=== PATIENT | female | born 1970 | race Caucasian/White ===

== ENCOUNTER 2019-02-11 12:44 | Outpatient (CLI) | payer OTHER | END 2019-02-11 12:45 | disposition critical access hospital (66) | LOC: EMS 12:44 | PROVIDERS: ATTEND Surgery | DX: M25.571 Pain in right ankle and joints of right foot (principal); W18.49XA Other slipping, tripping and stumbling without falling, initial encounter; Y93.01 Activity, walking, marching and hiking; Y92.89 Other specified places as the place of occurrence of the external cause | CPT/HCPCS: A0425; A0427 ==

== ENCOUNTER 2019-02-11 12:50 | Emergency (ER) | payer BC, OTHER ==
--- NOTE | 2019-02-11 13:00 | ED Physician Documentation ---
PD HPI LOWER EXT INJURY - Stated complaint Stated Complaint: R ANKLE PAIN - Chief complaint Chief Complaint: Ext Problem - History obtained from History obtained from: Patient, EMS - History of Present Illness PD HPI LOW EXT INJURY LOCATION: Right (She was out to get lunch and she tripped and fell inverting her right ankle and has severe pain there. She received 100 mcg of fentanyl in route. She declines pain medication on initial evaluation. No other injuries. She does have a history of malignant brain tumor, it has recurred, she is not getting therapy for this yet but will be soon.) Review of Systems Ten Systems: 10 systems reviewed and negative Constitutional: reports: Reviewed and negative Nose: reports: Reviewed and negative Throat: reports: Reviewed and negative PD PAST MEDICAL HISTORY - Past Medical History Past Medical History: Yes Other Past Medical History: Brain CA - Present Medications Home Medications: Ambulatory Orders Medication Instructions Recorded Confirmed Atenolol 100 mg PO 02/11/19 Knee Scooter 1 unit TD ONCE #1 02/11/19 Lisinopril [Prinivil] 10 mg PO 02/11/19 Oxycodone HCl/Acetaminophen 1 - 2 each PO Q6H PRN #30 tablet 02/11/19 [Percocet 5-325 mg Tablet] - Allergies Allergies/Adverse Reactions: Allergies Allergy/AdvReac Type Severity Reaction Status Date / Time No Known Drug Allergies Allergy Verified 02/11/19 12:58 - Living Situation Living Situation: reports: With family - Social History Does the pt have substance abuse?: No - Family History Family history: reports: Non contributory PD ED PE NORMAL - Vitals Vital signs reviewed: Yes - General General: Alert and oriented X 3, No acute distress - HEENT HEENT: PERRL, EOMI - Neck Neck: Supple, no meningeal sign, No bony TTP - Cardiac Cardiac: RRR, No murmur - Respiratory Respiratory: No respiratory distress, Clear bilaterally - Abdomen Abdomen: Normal bowel sounds, Soft, Non tender - Back Back: No CVA TTP, No spinal TTP - Derm Derm: Normal color, Warm and dry - Extremities Extremities: Other (There is a little abrasion over the medial malleolus, it is too shallow to represent an open fracture. She has severe tenderness about the ankle with normal neurovascular status in the foot. There is no proximal fibular tenderness.) - Neuro Neuro: Alert and oriented X 3, Normal speech - Psych Psych: Normal mood, Normal affect Results - Vitals Vitals: Vital Signs - 24 hr 02/11/19 02/11/19 02/11/19 12:55 15:00 15:33 Temperature 36.8 C Heart Rate 76 67 68 Respiratory 16 16 17 Rate Blood Pressure 145/96 H 184/94 H 176/95 H O2 Saturation 94 97 98 02/11/19 02/11/19 15:40 15:42 Temperature Heart Rate 75 73 Respiratory 14 17 Rate Blood Pressure 175/95 H 162/87 H O2 Saturation 97 99 Oxygen O2 Source Room air - Labs Labs: Laboratory Tests 02/11/19 02/11/19 13:10 13:10 WBC 12.2 H RBC 4.91 Hgb 14.6 Hct 43.5 MCV 88.5 MCH 29.8 MCHC 33.7 RDW 13.8 Plt Count 344 MPV 7.6 L Neut # (Auto) 6.8 H Lymph # (Auto) 4.2 H [place] # (Auto) 0.8 Eos # (Auto) 0.2 Baso # (Auto) 0.2 H Absolute Nucleated RBC 0.00 Nucleated RBC % 0.0 Sodium 137 Potassium 3.8 Chloride 102 Carbon Dioxide 23 Anion Gap 12.0 BUN 16 Creatinine 0.8 Estimated GFR (MDRD) 77 L Glucose 113 H Calcium 9.4 Total Bilirubin 0.3 AST 18 ALT 16 Alkaline Phosphatase 68 Total Protein 7.8 Albumin 4.2 Globulin 3.6 Albumin/Globulin Ratio 1.2 Lipase 38 Ethyl Alcohol < 5.0 Procedures - Splint (location) rle Splint applied by: Physician, Tech Type of splint: Fiberglass, Short leg, Posterior, Stirrup Other: Patient tolerated well, No complications, Neurovascular intact, Crutches provided - Reduction Body part reduced: Right, Ankle Fracture or dislocation: Fracture dislocation Reduction aftercare: NV intact, Alignment improved - Procedural sedation Sedation prep: Informed consent, Time out completed, Last meal (1205pm), PE performed, AHA 2 - mild disease (tobacco, obesity) Sedation medications: propofol (80mg IVP x1) Patient status during sedation: Vitals remained stable, Maintained airway, Recovered uneventfully Sedation recovery: Recovered uneventfully PD MEDICAL DECISION MAKING - ED course ED course: 48-year-old woman with isolated right ankle injury, obvious fracture both clinically and on x-ray with trimalleolar fracture dislocation on x-ray. Case discussed by phone with Dr. Walker, on-call orthopedics. She is only been n.p.o. for about 2 hours and recommends closed reduction and splinting and follow-up in the office. Departure - Departure Disposition: 01 Home, Self Care Clinical Impression: Fracture dislocation of right ankle Qualifiers: Encounter type: initial encounter Fracture type: closed Qualified Code(s): S82.891A - Other fracture of right lower leg, initial encounter for closed fracture Condition: Good Record reviewed to determine appropriate education?: Yes Instructions: ED Fx Ankle Lateral Malleolus Follow-Up: Mk Walker MD [Provider Admit Priv/Credential] - Prescriptions: Knee Scooter 1 unit TD ONCE #1 Oxycodone HCl/Acetaminophen [Percocet 5-325 mg Tablet] 1 - 2 each PO Q6H PRN #30 tablet PRN Reason: pain Comments: Keep the leg elevated as much as possible. You can ice it through the splint, but do not remove the splint or get it wet. Return for new or worsening symptoms. Call Dr. Walker's office for Thursday for next available appointment. As discussed you will need a surgical procedure on this fracture to stabilize it. Forms: Activity restrictions
[2019-02-11 13:14] LABS: BASOPHILS # (AUTO) 0.2 10^3/uL (0.0-0.1); BASOPHILS % (AUTO) 1.4 %; EOSINOPHILS # (AUTO) 0.2 10^3/uL (0.0-0.7); EOSINOPHILS % (AUTO) 1.8 %; HGB - HEMOGLOBIN 14.6 g/dL (12.0-16.0); LYMPHOCYTES # (AUTO) 4.2 10^3/uL (1.5-3.5); LYMPHOCYTES % (AUTO) 34.3 %; MEAN CORPUSCULAR HEMOGLOBIN 29.8 pg (27.0-31.0); MEAN CORPUSCULAR HGB CONC 33.7 g/dL (32.0-36.0); MEAN CORPUSCULAR VOLUME 88.5 fL (81.0-99.0); MEAN PLATELET VOLUME 7.6 fL (7.9-10.8); MONOCYTES # (AUTO) 0.8 10^3/uL (0.0-1.0); MONOCYTES % (AUTO) 6.6 %; NEUTROPHILS # (AUTO) 6.8 10^3/uL (1.5-6.6); NEUTROPHILS % (AUTO) 55.9 %; PLT - PLATELET COUNT 344 10^3/uL (130-450); RED BLOOD COUNT 4.91 10^6/uL (4.20-5.40); RED CELL DISTRIBUTION WIDTH 13.8 % (12.0-15.0); WHITE BLOOD COUNT 12.2 x10^3/uL (4.8-10.8)
[2019-02-11 13:30] LABS: ALBUMIN 4.2 g/dL (3.2-5.5); ALBUMIN/GLOBULIN RATIO 1.2 (1.0-2.2); ALKALINE PHOSPHATASE 68 IU/L (42-121); ALT ALANINE AMINOTRANSFERASE 16 IU/L (10-60); AST ASPARTATE AMINOTRANSFERASE 18 IU/L (10-42); BILIRUBIN,TOTAL 0.3 mg/dL (0.2-1.0); BUN - BLOOD UREA NITROGEN 16 mg/dL (6-20); CALCIUM 9.4 mg/dL (8.5-10.3); CARBON DIOXIDE - CO2 23 mmol/L (21-32); CHLORIDE 102 mmol/L (101-111); CREATININE 0.8 mg/dL (0.4-1.0); GFR - MDRD 77 (>89); GLUCOSE 113 mg/dL (70-100); LIPASE 38 U/L (22-51); SODIUM 137 mmol/L (135-145); TOTAL PROTEIN 7.8 g/dL (6.7-8.2)
[2019-02-11] MEDS ORDERED: HYDROmorphone 1 MG/ML CARPUJECT IVP STA ×2 (13:34→15:44)
[2019-02-11] MEDS ORDERED: NICOTINE 14 MG PATCH TOP STA (14:09)
[2019-02-11] MEDS ORDERED: PROPOFOL 200 MG/20 ML VIAL IVP STA (14:54)
--- NOTE | 2019-02-11 15:04 | XRAY Report ---
Reason: ankle inj Procedure Date: 02/11/2019 Accession Number: [id number] / [id number] Procedure: XR - Ankle 3 View RT CPT Code: FULL RESULT: EXAM: RIGHT ANKLE RADIOGRAPHY EXAM DATE: 02/11/2019 02:44 PM. CLINICAL HISTORY: Ankle inj. COMPARISON: None available. TECHNIQUE: 3 views. FINDINGS: Bones: There is an acute trimalleolar fracture of the right ankle. There is an acute oblique fracture through the distal right fibular metaphysis, which is displaced laterally approximately 15 mm. There is an acute transverse fracture through the medial malleolus, which remains closely opposed to the talus. There is an acute vertically oriented fracture through the posterior malleolus, which is displaced posteriorly approximately 5 mm. Joints: Right ankle joint dislocation. The talus is displaced posteriorly relative to the tibial plafond approximately 10 mm and laterally approximately 26 mm. The talar dome appears intact. Probable small/moderate ankle joint effusion. Soft Tissues: Diffuse soft tissue swelling. IMPRESSION: Acute, displaced trimalleolar fracture of the right ankle, as described. Posterior and lateral dislocation of the right ankle. Consider follow-up imaging of the proximal/mid right tibia and fibula to exclude additional fractures. RADIA
[2019-02-11 16:36] VITALS: BP 116/85
--- NOTE | 2019-02-11 17:25 | XRAY Report ---
Reason: POST REDUCTION Procedure Date: 02/11/2019 Accession Number: [id number] / [id number] Procedure: XR - Tib/Fib RT CPT Code: FULL RESULT: EXAM: RIGHT TIBIA/FIBULA RADIOGRAPHY EXAM DATE: 02/11/2019 04:05 PM. CLINICAL HISTORY: POST REDUCTION. COMPARISON: Right ankle radiographs 02/11/2019. TECHNIQUE: 2 views. FINDINGS: Redemonstrated trimalleolar fracture of the right ankle. The right ankle remains subluxed posteriorly and laterally, although to a lesser degree compared to the initial exam. The medial and lateral malleoli remain displaced. The posterior malleolus is displaced posteriorly 12 mm, which appears more displaced compared to the initial exam, although this could be related to differences in patient positioning. Possible acute nondisplaced fracture through the proximal fibular neck, although overlying artifact from cast limits detail. IMPRESSION: Acute right ankle trimalleolar fracture and dislocation. There is improved angulation of the displaced distal fibula fracture. No significant change in alignment of the medial malleolus fracture. Posterior malleolus fracture appears slightly more displaced, although this could be related to differences in patient positioning. Possible acute nondisplaced fracture of the proximal right fibular neck, although artifact from overlying cast limits evaluation. RADIA
--- NOTE | 2019-02-14 11:02 | ED Physician Documentation ---
ED Addendum - Addendum Addendum: 02/14/19 11:02 Sedation time: 20 min
== END 2019-02-11 16:45 | disposition home or self-care (01) ==
LOC: EDUNIT# → ED 12:50
DX: S82.851A Displaced trimalleolar fracture of right lower leg, initial encounter for closed fracture (principal); W01.0XXA Fall on same level from slipping, tripping and stumbling without subsequent striking against object, initial encounter; C71.9 Malignant neoplasm of brain, unspecified
CPT/HCPCS: 27788; 36415; 73590; 73610; 80053; 80320; 83690; 85025; 94770; 96374; 96376; 99152; 99284; A9270; J1170

== ENCOUNTER 2019-12-22 09:28 | Outpatient (CLI) | payer BC ==
[2019-12-22 10:06] LABS: BASOPHILS # (AUTO) 0.1 10^3/uL (0.0-0.1); BASOPHILS % (AUTO) 1.3 %; EOSINOPHILS # (AUTO) 0.2 10^3/uL (0.0-0.7); EOSINOPHILS % (AUTO) 2.5 %; HGB - HEMOGLOBIN 15.5 g/dL (12.0-16.0); LYMPHOCYTES # (AUTO) 2.4 10^3/uL (1.5-3.5); LYMPHOCYTES % (AUTO) 27.3 %; MEAN CORPUSCULAR HEMOGLOBIN 30.3 pg (27.0-31.0); MEAN CORPUSCULAR HGB CONC 33.3 g/dL (32.0-36.0); MEAN PLATELET VOLUME 9.7 fL (7.9-10.8); MONOCYTES # (AUTO) 0.6 10^3/uL (0.0-1.0); MONOCYTES % (AUTO) 7.3 %; NEUTROPHILS # (AUTO) 5.4 10^3/uL (1.5-6.6); NEUTROPHILS % (AUTO) 61.1 %; PLT - PLATELET COUNT 261 10^3/uL (130-450); RED BLOOD COUNT 5.12 10^6/uL (4.20-5.40); RED CELL DISTRIBUTION WIDTH 14.5 % (12.0-15.0); WHITE BLOOD COUNT 8.8 x10^3/uL (4.8-10.8)
[2019-12-22 10:24] LABS: ALBUMIN 4.2 g/dL (3.2-5.5); ALBUMIN/GLOBULIN RATIO 1.3 (1.0-2.2); BILIRUBIN,TOTAL 0.7 mg/dL (0.2-1.0); CALCIUM 9.1 mg/dL (8.5-10.3); CREATININE 0.8 mg/dL (0.4-1.0); TOTAL PROTEIN 7.5 g/dL (6.7-8.2)
== END 2019-12-22 09:29 | disposition home or self-care (01) ==
LOC: LAB 09:28
PROVIDERS: ATTEND Physician Assistant Medical
DX: C71.1 Malignant neoplasm of frontal lobe (principal)
CPT/HCPCS: 36415; 80053; 85025

== ENCOUNTER 2020-08-04 17:27 | Emergency (ER) | payer BC, MEDICAID ==
[2020-08-04] MEDS ORDERED: ONDANSETRON 4 MG/2 ML VIAL IVP STA ×2 (17:57→21:59)
--- NOTE | 2020-08-04 17:59 | ED Physician Documentation ---
History of Present Illness - Stated complaint Stated Complaint: HIGH BP - Chief complaint Chief Complaint: Neuro - History obtained from History obtained from: Patient, Family - History of Present Illness Pain level max: 3 Pain level now: 3 Quality: dull, aching - Additonal information Additional information: 50-year-old female presents to the emergency department after vomiting x1 today. She apparently has a history of a brain tumor that was resected in [facility] in 2011. They state that she has recurrences throughout her brain, compressing her ventricles. Family states she has hydrocephalus. Did not take her blood pressure medication today. She had nausea and vomiting x1. Has had a dull headache for 3 days. No fever. No chills. The family states that she has had altered mental status over the past few days as well. They state that normally she is able to take care of herself and drive, but she has become very forgetful and she could not drive herself today. They are concerned about her change in mental status. All of her care is with Dr. Albert, neuro-oncology at the [facility]. Nothing makes it better or worse. No fevers. No chills. No coughing. No congestion. 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 Mainly in the inferior portion of the eye. Review of Systems Ten Systems: 10 systems reviewed and negative Constitutional: denies: Fever, Chills Ears: denies: Ear pain Nose: denies: Rhinorrhea / runny nose, Congestion Respiratory: denies: Cough GI: reports: Nausea, Vomiting. denies: Diarrhea Skin: denies: Rash Musculoskeletal: denies: Neck pain, Back pain Neurologic: reports: Confused, Altered mental status. denies: Focal weakness, Numbness, Seizure, LOC PD PAST MEDICAL HISTORY - Past Medical History Past Medical History: Yes Other Past Medical History: "brain tumors, hydrocephalus" - Past Surgical History Past Surgical History: Yes - Present Medications Home Medications: Ambulatory Orders Medication Instructions Recorded Confirmed Knee Scooter 1 unit TD ONCE #1 02/11/19 Lisinopril/Hydrochlorothiazide 1 tab PO DAILY 08/04/20 08/04/20 [Lisinopril-Hctz 10-12.5 mg Tab] atenoloL [Tenormin] 25 mg PO DAILY 08/04/20 08/04/20 - Allergies Allergies/Adverse Reactions: Allergies Allergy/AdvReac Type Severity Reaction Status Date / Time No Known Drug Allergies Allergy Verified 08/04/20 21:37 - Living Situation Living Situation: reports: Alone Living Arrangement: reports: At home - Social History Does the pt have substance abuse?: No - Family History Family history: reports: Non contributory PD ED PE NORMAL - Vitals Vital signs reviewed: Yes - General General: No acute distress, Other (alert, oriented to person and place. Confused during questioning. ) - HEENT HEENT: Moist mucous membranes - Neck Neck: Supple, no meningeal sign - Cardiac Cardiac: RRR, Strong equal pulses - Respiratory Respiratory: No respiratory distress, Clear bilaterally - Abdomen Abdomen: Soft, Non tender, Non distended - Derm Derm: Warm and dry - Extremities Extremities: No edema, No calf tenderness / cord - Neuro Neuro: No motor deficit, No sensory deficit, Other (alert, oriented to person and place.) Eye Opening: Spontaneous Motor: Obeys Commands Verbal: Confused GCS Score: 14 Results - Vitals Vitals: Vital Signs - 24 hr 08/04/20 08/04/20 08/04/20 17:44 19:49 21:00 Temperature 36.8 C Heart Rate 107 H 95 104 H Respiratory 20 17 17 Rate Blood Pressure 157/106 H 163/119 H 160/102 H O2 Saturation 94 94 95 08/04/20 21:12 Temperature 37.0 C Heart Rate 106 H Respiratory 17 Rate Blood Pressure 177/125 H O2 Saturation 99 Oxygen O2 Source Room air - Labs Labs: Laboratory Tests 08/04/20 08/04/20 08/04/20 18:23 18:23 18:39 WBC 11.1 H RBC 4.95 Hgb 15.0 Hct 45.2 MCV 91.3 MCH 30.3 MCHC 33.2 RDW 14.3 Plt Count 286 MPV 9.9 Neut # (Auto) 7.2 H Lymph # (Auto) 2.6 [place] # (Auto) 0.9 Eos # (Auto) 0.1 Baso # (Auto) 0.1 Absolute Nucleated RBC 0.00 Nucleated RBC % 0.0 Sodium 141 Potassium 3.7 Chloride 103 Carbon Dioxide 27 Anion Gap 11.0 BUN 16 Creatinine 0.8 Estimated GFR (MDRD) 76 L Glucose 96 Calcium 9.5 Total Bilirubin 0.5 AST 16 ALT 18 Alkaline Phosphatase 62 Total Protein 7.8 Albumin 4.1 Globulin 3.7 Albumin/Globulin Ratio 1.1 Lipase 36 Urine Color YELLOW Urine Clarity CLEAR Urine pH 6.5 Ur Specific [place] 1.025 Urine Protein TRACE Urine Glucose (UA) NEGATIVE Urine Ketones NEGATIVE Urine Occult Blood NEGATIVE Urine Nitrite POSITIVE H Urine Bilirubin NEGATIVE Urine Urobilinogen 0.2 (NORMAL) Ur Leukocyte Esterase NEGATIVE Urine RBC 0-5 Urine WBC 0-3 Ur Squamous Epith Cells MOD Squamous H Urine Bacteria Many H Ur Microscopic Review INDICATED Urine Culture Comments NOT INDICATED - Rads (name of study) cxr Radiology: Prelim report reviewed, EMP read contemporaneously, See rad report (no acute abnormality. ) head CT Radiology: Prelim report reviewed, EMP read contemporaneously, See rad report PD MEDICAL DECISION MAKING - ED course Complexity details: reviewed results, re-evaluated patient, considered differential, d/w patient, d/w family, d/w design center consultant ED course: 50-year-old female presents to the emergency department with altered mental status. This apparently is been ongoing for the past several weeks. I spoke with Dr. Clementine Fulton at [facility] neurology at 1900. She recommends a head CT. This was ordered. I spoke with Dr. Donnell Barrett from neurosurgery at the [facility] at 2110 who states there is no neurosurgical intervention. I spoke with Dr. Al at 2210, neurosurgery at [facility] who recommends emergent transfer, start on nicardipine drip. Goal SBP 140-160. Patient is GCS 14. Has confusion. Patient will be sent via [employer]. COBRA forms completed. This document was made in part using voice recognition software. While efforts are made to proofread this document, sound alike and grammatical errors may occur. CXR: Normal for age, source of current symptoms is not found. CT HEAD: IMPRESSION: The current examination is difficult to accurately interpret given the absence of any comparison imaging for this patient either by MR or CT scanning. There appears to be an ovoid relatively large central mass or hemorrhage of variable radiodensity extending to impinge upon the third ventricle just above the sella turcica and to traverse rightward and anteriorly along the lower aspect of the frontal lobes towards the right frontal region. At the right frontal area there is a abnormal extra-axial CSF density fluid collection is noted, possibly a resection cavity. The masslike structure discussed above appears to impinge on the third ventricle with secondary hydrocephalus. The findings appear to indicate need for neurosurgical intervention or consultation. Departure - Departure Disposition: 02 Transfer Acute Care Hosp Clinical Impression: Intracranial hemorrhage Altered mental status Qualifiers: Altered mental status type: unspecified Qualified Code(s): R41.82 - Altered mental status, unspecified Condition: Stable
[2020-08-04 18:35] LABS: BASOPHILS # (AUTO) 0.1 10^3/uL (0.0-0.1); BASOPHILS % (AUTO) 1.1 %; EOSINOPHILS # (AUTO) 0.1 10^3/uL (0.0-0.7); EOSINOPHILS % (AUTO) 1.3 %; LYMPHOCYTES # (AUTO) 2.6 10^3/uL (1.5-3.5); LYMPHOCYTES % (AUTO) 23.6 %; MEAN CORPUSCULAR HEMOGLOBIN 30.3 pg (27.0-31.0); MEAN CORPUSCULAR HGB CONC 33.2 g/dL (32.0-36.0); MEAN CORPUSCULAR VOLUME 91.3 fL (81.0-99.0); MEAN PLATELET VOLUME 9.9 fL (7.9-10.8); MONOCYTES # (AUTO) 0.9 10^3/uL (0.0-1.0); MONOCYTES % (AUTO) 7.9 %; NEUTROPHILS # (AUTO) 7.2 10^3/uL (1.5-6.6); NEUTROPHILS % (AUTO) 65.1 %; PLT - PLATELET COUNT 286 10^3/uL (130-450); RED BLOOD COUNT 4.95 10^6/uL (4.20-5.40); RED CELL DISTRIBUTION WIDTH 14.3 % (12.0-15.0); WHITE BLOOD COUNT 11.1 x10^3/uL (4.8-10.8)
[2020-08-04 18:47] LABS: BILIRUBIN,URINE NEGATIVE (NEGATIVE); GLUCOSE, URINE (UA) NEGATIVE (NEGATIVE); KETONES,URINE (UA) NEGATIVE (NEGATIVE); LEUKOCYTE ESTERASE, URINE NEGATIVE (NEGATIVE); NITRITE,URINE POSITIVE (NEGATIVE); OCCULT BLOOD,URINE NEGATIVE (NEGATIVE); PH,URINE 6.5 PH (5.0-7.5); PROTEIN,URINE TRACE mg/dL (NEGATIVE); UROBILINOGEN,URINE 0.2 (NORMAL) E.U./dL (NORMAL)
[2020-08-04 18:49] LABS: CLARITY,URINE CLEAR (CLEAR)
[2020-08-04 18:50] LABS: ALBUMIN 4.1 g/dL (3.2-5.5); ALBUMIN/GLOBULIN RATIO 1.1 (1.0-2.2); BILIRUBIN,TOTAL 0.5 mg/dL (0.2-1.0); CALCIUM 9.5 mg/dL (8.5-10.3); CREATININE 0.8 mg/dL (0.4-1.0); TOTAL PROTEIN 7.8 g/dL (6.7-8.2)
[2020-08-04] MEDS ORDERED: ACETAMINOPHEN 325 MG TABLET PO STA (18:55)
[2020-08-04 18:56] LABS: BACTERIA,URINE Many /HPF (None Seen); RBC,URINE 0-5 /HPF (0-5); SQUAMOUS EPITHELIAL CELL,UR MOD Squamous (<= Few)
--- NOTE | 2020-08-04 19:28 | XRAY Report ---
PROCEDURE: Chest 1 View X-Ray INDICATIONS: aloc TECHNIQUE: One view of the chest was acquired. COMPARISON: None FINDINGS: Surgical changes and devices: None. Lungs and pleura: No pleural effusions or pneumothorax. Lungs are clear. Mediastinum: Mediastinal contours appear normal. Heart size is normal. Bones and chest wall: No suspicious bony lesions. Overlying soft tissues appear unremarkable. IMPRESSION: Normal for age, source of current symptoms is not found. Reviewed by: Jim Hamilton MD on 08/04/2020 7:27 PM PDT Approved by: Jim Hamilton MD on 08/04/2020 7:27 PM PDT Station ID: [id number]
--- NOTE | 2020-08-04 19:49 | CT Report ---
PROCEDURE: HEAD WO INDICATIONS: aloc TECHNIQUE: Noncontrast 4.5 mm thick angled axial sections acquired from the foramen magnum to the vertex. For r adiation dose reduction, the following was used: automated exposure control, adjustment of mA and/or kV according to patient size. COMPARISON: None. FINDINGS: Image quality: Excellent. CSF spaces: Basal cisterns are patent except at the suprasellar cistern where a heterogeneous ovoid masslike structure of hemorrhage or tumor has elevated and intermediate radiodensity within, centered at and to the right of midline directed anteriorly, and measuring up to 6.2 cm AP and 3.3 cm transve rse. This is associated with hydrocephalus, involving the lateral ventricles, and the third ventricle appears effaced or replaced by this material. There is a enlarged CSF radiodensity space measuring u p to 3.0 x 3.1 cm at the anterior margin of the right frontal lobe, of uncertain chronicity and etiol ogy. This may represent a resection cavity and it has a craniocaudad length of up to 6.7 cm.. No add itional extra-axial fluid collections. Ventricles are abnormally dilated to moderate degree in size and asymmetric in shape dilated greater on the left than the right.. Brain: Mild left to right midline shift. The ovoid structure at the central suprasellar cistern area and extending anteriorly rightward may represent an intracranial mass or heterogeneous clotted hemorr yobani. Cohen-white matter interface is normal generally. Skull and face: Calvarium and visualized facial bones are intact, without suspicious lesions. Sinuses: Visualized sinuses and mastoids are clear. IMPRESSION: The current examination is difficult to accurately interpret given the absence of any co mparison imaging for this patient either by MR or CT scanning. There appears to be an ovoid relativel y large central mass or hemorrhage of variable radiodensity extending to impinge upon the third ventr icle just above the sella turcica and to traverse rightward and anteriorly along the lower aspect of the frontal lobes towards the right frontal region. At the right frontal area there is a abnormal extra-axial CSF density fluid collection is noted, poss ibly a resection cavity. The masslike structure discussed above appears to impinge on the third ventricle with secondary hydro cephalus. The findings appear to indicate need for neurosurgical intervention or consultation. Reviewed by: Jim Hamilton MD on 08/04/2020 7:47 PM PDT Approved by: Jim Hamilton MD on 08/04/2020 7:47 PM PDT Station ID: [id number]
[2020-08-04] MEDS ORDERED: IOVERSOL 320 100 ML VIAL IVP ONE (20:01)
[2020-08-04] MEDS ORDERED: NICARDIPINE HCL 25 MG in SODIUM CHLORIDE 0.9% 240 ML IV STA (22:04)
[2020-08-04] MEDS ORDERED: ONDANSETRON 4 MG/2 ML VIAL ONE (22:07)
[2020-08-04 22:14] LABS: PT - PROTHROMBIN TIME 10.7 secs (9.9-12.6)
[2020-08-04] MEDS ORDERED: NICARDIPINE HCL 25 MG/10 ML VIAL IV ONE (22:16)
[2020-08-04 22:24] VITALS: BP 170/122
== END 2020-08-04 22:33 | disposition short-term general hospital (02) ==
LOC: ED 17:27
DX: I62.9 Nontraumatic intracranial hemorrhage, unspecified (principal); R41.89 Other symptoms and signs involving cognitive functions and awareness; R40.2412 Glasgow coma scale score 13-15, at arrival to emergency department
CPT/HCPCS: 36415; 70450; 71045; 80053; 81001; 83690; 85025; 85610; 85730; 96374; 96375; 96376; 99285; A9270; 81003; 87086